=== PATIENT | male | born 1975 | race Two or more races ===

== ENCOUNTER 2023-11-05 17:07 | Emergency (ER) | payer MEDICAID, OTHER ==
[~2023-11-05] VITALS: Ht 165.1 cm; Wt 92.5 kg
[2023-11-05] MEDS ORDERED: KETOROLAC TROMETH 60MG/2ML VIAL IM ONE (23:30)
[2023-11-05] MEDS ORDERED: NAP500T PO (23:32)
[2023-11-06 00:40] VITALS: BP 160/116; PULSE 104; RESP 18; TEMP 98.5; O2SAT 94
== END 2023-11-06 01:27 | disposition home or self-care (01) ==
LOC: ER 17:07
DX: G56.01 Carpal tunnel syndrome, right upper limb (principal); G56.02 Carpal tunnel syndrome, left upper limb; I10 Essential (primary) hypertension; E11.9 Type 2 diabetes mellitus without complications; Z98.890 Other specified postprocedural states; Z79.899 Other long term (current) drug therapy
CPT/HCPCS: 29125; 73110; 73130; 93005; 96372; 99284; J1885